=== PATIENT | female | born 1995 | race Caucasian/White ===

== ENCOUNTER 2023-11-06 12:00 | Emergency (ER) | payer MEDICAID, OTHER ==
[~2023-11-06] VITALS: Ht 160 cm; Wt 86.2 kg
[2023-11-06 12:14] VITALS: BP 131/77; PULSE 90; RESP 18; TEMP 97.3; O2SAT 95
[2023-11-06] MEDS: METOCLOPRAMIDE 10 MG/2 ML INJ VIAL IVP ONE (13:42)
[2023-11-06] MEDS: NACL 0.9% 1,000 ML IV ONE (13:43)
[2023-11-06] MEDS: KETOROLAC 30 MG/ML VIAL IVP ONE (13:44)
[2023-11-06 13:47] LABS: BASOPHILS # (AUTO) 0.1 K/uL (0.00-0.22); BASOPHILS % (AUTO) 0.5 % (0.0-2.0); EOSINOPHILS # (AUTO) 0.6 K/uL (0-0.4); EOSINOPHILS % (AUTO) 5.8 % (0.0-4.0); HEMATOCRIT 44.3 % (36-48); HEMOGLOBIN 15.1 g/dL (12.0-16.0); LYMPHOCYTES # (AUTO) 2.8 K/uL (2.5-16.5); LYMPHOCYTES % (AUTO) 25.2 % (20.5-51.1); MEAN CORPUSCULAR HEMOGLOBIN 28 pg (27-31); MEAN CORPUSCULAR HGB CONC 34 g/dL (33-37); MEAN CORPUSCULAR VOLUME 82.1 fL (80-94); MONOCYTES # (AUTO) 0.7 K/uL (0.8-1.0); NEUTROPHILS % (AUTO) 62.5 % (42.2-75.2); PLATELET COUNT (AUTO) 232 K/uL (140-450); RED BLOOD CELL COUNT(AUTO) 5.39 MIL/uL (4.20-5.40); RED CELL DISTRIBUTION WIDTH 13.6 % (11.6-13.7); WHITE BLOOD COUNT (AUTO) 11.2 K/uL (4.8-10.8)
[2023-11-06 14:02] LABS: ANION GAP 15.3 (8-16); CALCIUM 9.6 mg/dL (8.5-10.1); CARBON DIOXIDE 25.7 mmol/L (21-32); CREATININE 0.6 mg/dL (0.6-1.3)
[2023-11-06 14:56] VITALS: BP 128/81; PULSE 84; RESP 16; TEMP 97.2; O2SAT 98
== END 2023-11-06 14:55 | disposition home or self-care (01) ==
LOC: MED 12:00
DX: R51.9 Headache, unspecified (principal); M54.2 Cervicalgia; R09.89 Other specified symptoms and signs involving the circulatory and respiratory systems
CPT/HCPCS: 36415; 80048; 81002; 81025; 85025; 96361; 96374; 96375; 99284; J1885; J2765; J7030

== ENCOUNTER 2023-11-14 01:05 | Emergency (ER) | payer OTHER ==
[~2023-11-14] VITALS: Ht 160 cm; Wt 99.8 kg
[2023-11-14 01:10] VITALS: BP 150/78; PULSE 102; RESP 18; TEMP 99.9; O2SAT 96
[2023-11-14 03:28] LABS: APPEARANCE,URINE SL CLOUDY (CLEAR); BILIRUBIN,URINE NEGATIVE (NEGATIVE); BLOOD, URINE 3+ (NEGATIVE); COLOR,URINE YELLOW (YELLOW); LEUKOCYTE ESTERASE ,URINE 2+ (NEGATIVE); NITRITE, URINE NEGATIVE (NEGATIVE); PH,URINE 6.5 (5.0-9.0); PROTEIN,URINE TRACE (NEGATIVE); UGLUCOSE TRACE (NEGATIVE); UROBILINOGEN,URINE 0.2 EU/dL (0.2 - 1)
[2023-11-14 03:32] LABS: BACTERIA,URINE 10-30 (MOD) /HPF (None Seen); MUCUS,URINE 1+ /LPF (None Seen); RBC,URINE TOO NUMEROUS TO COUN /HPF (0-5); SQUAMOUS EPITHELIAL CELL,UR 0-3 (FEW) /LPF (0-3 (FEW))
[2023-11-14 03:51] LABS: AMPHETAMINE, URINE NEGATIVE ng/ml (NEG <=1000); BARBITURATE, URINE NEGATIVE ng/ml (NEG <=200); BENZODIAZEPINE, URINE NEGATIVE ng/mL (NEG <=200); CANNABINOID, URINE NEGATIVE ng/mL (NEG <=50); COCAINE, URINE NEGATIVE ng/mL (NEG <=300); OPIATE, URINE NEGATIVE ng/mL (NEG <=2000); PHENCYCLIDINE SCREEN,URINE NEGATIVE ng/mL (NEG <=25)
[2023-11-14] MEDS ORDERED: cefTRIAXone 1,000 MG VIAL ONE (04:01)
[2023-11-14] MEDS ORDERED: LIDOCAINE MPF 1% 5 ML ONE (04:01)
[2023-11-14] MEDS: cefTRIAXone 1,000 MG in LIDOCAINE MPF 1% 2.1 ML IM ONE (04:15)
[2023-11-14] MEDS ORDERED: CIPR500T9 PO (04:19)
[2023-11-14 04:20] VITALS: BP 150/78; PULSE 102; RESP 18; TEMP 99.9; O2SAT 96
== END 2023-11-14 04:20 | disposition home or self-care (01) ==
LOC: MED 01:05
DX: N39.0 Urinary tract infection, site not specified (principal)
CPT/HCPCS: 80305; 81001; 87086; 96372; 99283; J0696; J2001